=== PATIENT | male | born 2000 | race Caucasian/White ===

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

== ENCOUNTER 2022-12-17 21:46 | Emergency (ER) | payer MEDICAID, OTHER ==
[2022-12-17 22:06] VITALS: BP 152/99
--- NOTE | 2022-12-17 22:13 | ED Physician Documentation ---
PD HPI CHEST PAIN - Stated complaint Stated Complaint: CHEST PRESSURE/PX - Chief complaint Chief Complaint: Cardiac - History obtained from History obtained from: Patient - Additional information Additional information: 22-year-old man, previously healthy, presents with chest pain starting at 5 PM lasting about 30 minutes and then down tapering. Patient states his mother was concerned he has pancreatitis because his grandmother had pancreatitis and they believe it is inherited. Patient himself denies abdominal pain, denies chest pain at present stating that it resolved. He did have some shortness of breath at the time and nausea that has also resolved. Review of Systems Cardiac: reports: Chest pain / pressure, Palpitations Respiratory: reports: Dyspnea. denies: Cough GI: reports: Nausea. denies: Abdominal Pain, Vomiting Musculoskeletal: denies: Back pain PD PAST MEDICAL HISTORY - Past Medical History Cardiovascular: None Respiratory: None Endocrine/Autoimmune: None GI: None - Past Surgical History Past Surgical History: No - Present Medications Home Medications: Ambulatory Orders Medication Instructions Recorded Confirmed No Known Home Medications 12/17/22 12/17/22 - Allergies Allergies/Adverse Reactions: Allergies Allergy/AdvReac Type Severity Reaction Status Date / Time No Known Drug Allergies Allergy Verified 12/17/22 22:03 - Social History Does the pt smoke?: No Smoking Status: Never smoker Does the pt drink ETOH?: No Does the pt have substance abuse?: No - POLST Patient has POLST: No PD ED PE NORMAL - Vitals Vital signs reviewed: Yes - General General: Alert and oriented X 3, No acute distress, Well developed/nourished, Other (Large body habitus) - HEENT HEENT: Atraumatic, PERRL, EOMI - Neck Neck: Supple, no meningeal sign - Cardiac Cardiac: RRR - Respiratory Respiratory: No respiratory distress, Clear bilaterally - Abdomen Abdomen: Non tender, Non distended, No organomegaly Results - Vitals Vitals: Vital Signs - 24 hr 12/17/22 12/17/22 22:01 22:12 Temperature 36.9 C Heart Rate 83 Respiratory 18 18 Rate Blood Pressure 152/99 H O2 Saturation 99 Oxygen O2 Source Room air - EKG (time done) 2205 EKG releavant findings:: EKG personally interpreted by author of this note. Relevant findings are: Rate: Rate (enter#) (99) Rhythm: NSR [place]: Normal Intervals: Normal [place] QRS: Normal Ischemia: Normal ST segments PD Medical Decision Making - ED course ED course: 22-year-old man presents with atypical chest pain. PERC negative. Low risk for cardiac cause and patient is well-appearing with benign vital signs except for some mild high blood pressure that I advised him to get rechecked. Plan to follow-up with primary care provider. Return precautions given. Departure - Departure Disposition: Home, Self Care Clinical Impression: Chest pain Condition: Good Instructions: ED Chest Pain NonCardiac Comments: You were seen in the emergency department for an episode of chest pain. Your vital signs, physical exam and EKG were normal except for some high blood pressure that can be rechecked routinely. You do not have pancreatitis based on exam. Please follow-up with your primary care provider and return to the emergency department if you have other concerns.
== END 2022-12-17 22:24 | disposition home or self-care (01) ==
LOC: ED 21:46
DX: R07.9 Chest pain, unspecified (principal)
CPT/HCPCS: 93005; 99283; 99284